=== PATIENT | female | born 1995 | race Caucasian/White ===

== ENCOUNTER 2016-11-19 23:03 | Outpatient (CLI) | payer BC, OTHER ==
[~2016-11-19 23:03] MED LIST: ALEVE220 M2; CIPRO500 MG PO; FLAGYL500 MG PO; FLEXERIL10 MG PO; IBUPROFEN800 MG PO; KEFLEX500 MG PO; MACROBID100 MG PO; METRONIDAZOLE500 MG PO; MOBIC15 MG PO; MOTRIN600 MG PO; NOHOMEMEDS; NORCO 5/3251 TABLET PO; PEPCID40 MG PO; PHENERGAN12.5 MG PR; PHENERGAN25 MG PR; PRENATAL TABLE1 EAC3 PO; PROMETHAZINE HC25 M1 PO; TYLENOL WITH C1 EACH PO; ZITHROMAX Z-PA250 MG PO; ZOFRAN ODT4 MG PO; ZOFRAN ODT8 MG PO; prenatals
[2016-11-19 23:36] VITALS: BP 112/55
[2016-11-20] MEDS ORDERED: PRENATAL TABLE1 EACH PO (00:18)
[2016-11-20] MEDS ORDERED: TYLENOL EXTRA500 MG PO (00:19)
== END 2016-11-20 00:30 | disposition home or self-care (01) ==
LOC: LDRP-OP 23:03 → 2WEST 23:04 → LDRP-OP 03-31 16:56
DX: O99.89 Other specified diseases and conditions complicating pregnancy, childbirth and the puerperium (principal); R10.2 Pelvic and perineal pain; M54.9 Dorsalgia, unspecified; R26.2 Difficulty in walking, not elsewhere classified; Z3A.25 25 weeks gestation of pregnancy
CPT/HCPCS: 59025; G0378

== ENCOUNTER 2017-01-16 02:08 | Outpatient (CLI) | payer BC, OTHER ==
[~2017-01-16 02:08] MED LIST changes: +PRENATAL TABLE1 EACH PO; +TYLENOL EXTRA500 MG PO
[2017-01-16 02:28] VITALS: BP 113/62
[2017-01-16 03:10] LABS: ADD MIUA? YES; BILIRUBIN NEGATIVE; BLOOD NEGATIVE; COLOR YELLOW ((YELLOW)); GLUCOSE (STRIP) NEGATIVE; KETONES NEGATIVE; LEUKOCYTES NEGATIVE; NITRITE NEGATIVE; PROTEIN (STRIP) NEGATIVE; SPECIFIC GRAVITY 1.013 (1.000-1.030); UROBILINOGEN 0.2 MG/DL (0.2-1.0)
[2017-01-16 03:15] LABS: BACTERIA RARE /HPF; CALCIUM OXALATE CRYSTALS 4+ /HPF; EPITHELIAL CELLS 1+ /HPF; MUCUS TRACE /LPF; UCUL ADDED? NO; WHITE BLOOD CELLS 0-5 /HPF (0-5)
== END 2017-01-16 03:20 | disposition home or self-care (01) ==
LOC: LDRP-OP → 2WEST 02:09
PROVIDERS: Advanced Practice Midwife
DX: O36.8130 Decreased fetal movements, third trimester, not applicable or unspecified (principal); Z3A.33 33 weeks gestation of pregnancy; M54.5 Low back pain; Z87.442 Personal history of urinary calculi
CPT/HCPCS: 59025; 81003; 87086; G0378

== ENCOUNTER 2017-02-08 19:49 | Outpatient (CLI) | payer BC, OTHER ==
[2017-02-08 20:25] VITALS: BP 124/73
[2017-02-08 20:57] LABS: ADD MIUA? YES; BILIRUBIN NEGATIVE; BLOOD SMALL; COLOR YELLOW ((YELLOW)); GLUCOSE (STRIP) NEGATIVE; KETONES NEGATIVE; LEUKOCYTES NEGATIVE; NITRITE NEGATIVE; PROTEIN (STRIP) NEGATIVE; SPECIFIC GRAVITY 1.013 (1.000-1.030); UROBILINOGEN 0.2 MG/DL (0.2-1.0)
[2017-02-08 21:03] LABS: BACTERIA NONE SEEN /HPF; CALCIUM OXALATE CRYSTALS 3+ /HPF; EPITHELIAL CELLS RARE /HPF; MUCUS NONE SEEN /LPF; UCUL ADDED? NO; WHITE BLOOD CELLS 0-5 /HPF (0-5)
== END 2017-02-08 21:00 | disposition home or self-care (01) ==
LOC: LDRP-OP → 2WEST 19:51 → LDRP-OP 03-31 03:26
PROVIDERS: Advanced Practice Midwife
DX: O26.893 Other specified pregnancy related conditions, third trimester (principal); R51 Headache; R42 Dizziness and giddiness; Z3A.37 37 weeks gestation of pregnancy
CPT/HCPCS: 59025; 81003; G0378

== ENCOUNTER 2017-02-14 22:14 | Outpatient (CLI) | payer BC, OTHER ==
[~2017-02-14] VITALS: Ht 165.1 cm; Wt 99.1 kg
[2017-02-14 22:31] VITALS: BP 147/83
[2017-02-14 22:34] VITALS: BP 141/71
[2017-02-14 22:47] VITALS: BP 141/74
[2017-02-14 22:52] VITALS: BP 135/71
== END 2017-02-15 01:00 | disposition home or self-care (01) ==
LOC: LDRP-OP 22:14 → 2WEST 22:18 → LDRP-OP 03-31 22:11
DX: O47.1 False labor at or after 37 completed weeks of gestation (principal); Z3A.37 37 weeks gestation of pregnancy
CPT/HCPCS: 59025; G0378

== ENCOUNTER 2017-02-23 07:29 | Inpatient (IN) | payer BC, OTHER ==
[~2017-02-23] VITALS: Ht 167.6 cm; Wt 99.1 kg
[2017-02-23] VITALS (34 sets, daily range): BP systolic 109–150; BP diastolic 57–98
[2017-02-23 10:02] LABS: BASOPHIL COUNT 0.1 K/uL (0-0.1); EOSINOPHIL (%) 1.2 % (0-5); EOSINOPHIL COUNT 0.1 K/uL (0-0.3); HEMATOCRIT 31.8 % (36.0-46.0); IMMATURE GRANULOCYTE (%) 0.7 % (0.0-0.7); IMMATURE GRANULOCYTE COUNT 0.1 K/uL; INSTRUMENT ABS NEUTROPHIL CT 6.7 K/uL; LYMPHOCYTE COUNT 2.6 K/uL (1.0-2.8); MCH 26.5 PG (29.0-34.0); MCHC 32.4 G/DL (30.0-36.0); MCV 81.7 FL (83-99); MEAN PLAT.VOLUME 11.7 uM^3 (9.5-12.4); MONOCYTE (%) 6.8 % (3-12); MONOCYTE COUNT 0.7 K/uL (0-0.8); NEUTROPHIL (%) 65.1 % (45-76); NEUTROPHIL COUNT 6.7 K/uL (1.8-6.4); PLATELET COUNT 283 K/uL (156-360); RBC DIS.WIDTH-CV 14.1 % (11.8-14.6); RBC DIS.WIDTH-SD 40.9 % (39-53); RED BLOOD COUNT 3.89 M/uL (3.80-5.20); WHITE BLOOD COUNT 10.3 K/uL (4.1-10.2)
[2017-02-24] VITALS (12 sets, daily range): BP systolic 116–155; BP diastolic 59–81
[2017-02-25 07:38] LABS: BASOPHIL COUNT 0.1 K/uL (0-0.1); EOSINOPHIL (%) 2.8 % (0-5); EOSINOPHIL COUNT 0.3 K/uL (0-0.3); HEMATOCRIT 29.3 % (36.0-46.0); IMMATURE GRANULOCYTE (%) 0.7 % (0.0-0.7); IMMATURE GRANULOCYTE COUNT 0.1 K/uL; INSTRUMENT ABS NEUTROPHIL CT 6.8 K/uL; LYMPHOCYTE COUNT 3.7 K/uL (1.0-2.8); MCH 26.9 PG (29.0-34.0); MCHC 32.1 G/DL (30.0-36.0); MEAN PLAT.VOLUME 11.8 uM^3 (9.5-12.4); MONOCYTE (%) 7.5 % (3-12); MONOCYTE COUNT 0.9 K/uL (0-0.8); NEUTROPHIL (%) 57.3 % (45-76); NEUTROPHIL COUNT 6.8 K/uL (1.8-6.4); PLATELET COUNT 212 K/uL (156-360); RBC DIS.WIDTH-CV 14.4 % (11.8-14.6); RBC DIS.WIDTH-SD 43.8 % (39-53); RED BLOOD COUNT 3.49 M/uL (3.80-5.20); WHITE BLOOD COUNT 11.8 K/uL (4.1-10.2)
[2017-02-25] MEDS ORDERED: DOCUSATE SODIU100 MG PO (09:19)
[2017-02-25] MEDS ORDERED: IBUPROFEN800 MG PO (09:19)
[2017-02-25] MEDS ORDERED: FERROCITE324 MG PO (09:20)
== END 2017-02-25 15:30 | disposition home or self-care (01) | DRG 775 ==
LOC: LDRP-OP 07:29 → 2WEST 07:30 → LDRP-OP 07:35 → 2WEST 02-24 02:15 → LDRP-OP 03-19 01:48
PROVIDERS: Advanced Practice Midwife
PROC: 10907ZC Drainage of Amniotic Fluid, Therapeutic from Products of Conception, Via Natural or Artificial Opening (ICD-10-PCS; 2017-02-23)
PROC: 3E0R3CZ (ICD-10-PCS; 2017-02-23)
PROC: 00HU33Z Insertion of Infusion Device into Spinal Canal, Percutaneous Approach (ICD-10-PCS; 2017-02-23)
PROC: 3E0P7GC Introduction of Other Therapeutic Substance into Female Reproductive, Via Natural or Artificial Opening (ICD-10-PCS; 2017-02-23)
PROC: 10E0XZZ Delivery of Products of Conception, External Approach (ICD-10-PCS; principal; 2017-02-24)
DX: O70.0 First degree perineal laceration during delivery (principal); O69.81X0 Labor and delivery complicated by cord around neck, without compression, not applicable or unspecified; O99.824 Streptococcus B carrier state complicating childbirth; O99.02 Anemia complicating childbirth; D62 Acute posthemorrhagic anemia; O99.344 Other mental disorders complicating childbirth; F41.9 Anxiety disorder, unspecified; F32.9 Major depressive disorder, single episode, unspecified; Z3A.39 39 weeks gestation of pregnancy; Z37.0 Single live birth
CPT/HCPCS: 85025; C1755; G0378; J2540; J3010; J7120

== ENCOUNTER 2017-04-11 20:48 | Emergency (ER) | payer BC, OTHER ==
[~2017-04-11] VITALS: Ht 167.6 cm; Wt 93.2 kg
[~2017-04-11 20:48] MED LIST changes: +DOCUSATE SODIU100 MG PO; +FERROCITE324 MG PO
[2017-04-11 21:54] LABS: HEMATOCRIT 40.6 % (36.0-46.0); MCHC 30.8 G/DL (30.0-36.0); MEAN PLAT.VOLUME 10.2 uM^3 (9.5-12.4); PLATELET COUNT 339 K/uL (156-360); RBC DIS.WIDTH-CV 14.3 % (11.8-14.6); RBC DIS.WIDTH-SD 42.1 % (39-53); RED BLOOD COUNT 5.01 M/uL (3.80-5.20); WHITE BLOOD COUNT 11.6 K/uL (4.1-10.2)
[2017-04-11 22:06] LABS: CHLORIDE 106 mEq/L (99-109); POTASSIUM 4.2 mEq/L (3.7-5.4); SODIUM 139 mEq/L (136-147)
[2017-04-11 22:08] LABS: GLUCOSE 92 mg/dL (70-99)
[2017-04-11 22:09] LABS: ANION GAP 8 MEQ/L (2-14)
[2017-04-11 22:10] LABS: TOTAL BILIRUBIN 0.4 mg/dL (0.0-1.0)
[2017-04-11 22:12] LABS: ALKALINE PHOSPHATASE 105 IU/L (3-129); GFR ESTIMATE (CALCULATED) > 59 mL/min/
[2017-04-11 22:13] LABS: UREA NITROGEN (BUN) 22 mg/dL (9-23)
[2017-04-11 22:23] LABS: QUANTITATIVE HCG < 4.0 MIU/ML
[2017-04-12 01:41] LABS: ADD MIUA? YES; BILIRUBIN NEGATIVE; BLOOD MODERATE; COLOR YELLOW ((YELLOW)); GLUCOSE (STRIP) NEGATIVE; KETONES NEGATIVE; LEUKOCYTES NEGATIVE; NITRITE NEGATIVE; PROTEIN (STRIP) NEGATIVE; SPECIFIC GRAVITY 1.018 (1.000-1.030); UROBILINOGEN 0.2 MG/DL (0.2-1.0)
[2017-04-12 01:48] LABS: BACTERIA NONE SEEN /HPF; EPITHELIAL CELLS RARE /HPF; MUCUS TRACE /LPF; RED BLOOD CELLS TNTC /HPF (0-5); UCUL ADDED? NO; WHITE BLOOD CELLS 0-5 /HPF (0-5)
[2017-04-12] MEDS ORDERED: NAPROXEN500 MG PO (01:50)
[2017-04-12 01:59] VITALS: BP 127/63
== END 2017-04-12 02:00 | disposition home or self-care (01) ==
LOC: EME 20:48 → RME 20:48
DX: R10.31 Right lower quadrant pain (principal); Z87.442 Personal history of urinary calculi
CPT/HCPCS: 74176; 74177; 80053; 81003; 84702; 85027; 99281; 99284; J1885

== ENCOUNTER 2017-08-04 18:43 | Inpatient (IN) | payer BC ==
[~2017-08-04] VITALS: Ht 167.6 cm; Wt 92.1 kg
[~2017-08-04 18:43] MED LIST changes: +NAPROXEN500 MG PO
[2017-08-04 19:07] LABS: MCH 26.2 PG (29.0-34.0); MCHC 31.8 G/DL (30.0-36.0); MCV 82.5 FL (83-99); MEAN PLAT.VOLUME 9.7 uM^3 (9.5-12.4); RBC DIS.WIDTH-CV 13.6 % (11.8-14.6); RBC DIS.WIDTH-SD 41.3 % (39-53); RED BLOOD COUNT 4.12 M/uL (3.80-5.20); WHITE BLOOD COUNT 16.3 K/uL (4.1-10.2)
[2017-08-04 19:10] LABS: PLATELET COUNT 502 K/uL (156-360)
[2017-08-04 19:19] LABS: CHLORIDE 106 mEq/L (99-109); SODIUM 138 mEq/L (136-147)
[2017-08-04 19:21] LABS: GLUCOSE 88 mg/dL (70-99)
[2017-08-04 19:22] LABS: ANION GAP 8 MEQ/L (2-14)
[2017-08-04 19:25] LABS: GFR ESTIMATE (CALCULATED) > 59 mL/min/
[2017-08-04 19:26] LABS: UREA NITROGEN (BUN) 14 mg/dL (9-23)
[2017-08-04 22:58] LABS: TOTAL BILIRUBIN 0.5 mg/dL (0.0-1.0)
[2017-08-04 22:59] LABS: ALKALINE PHOSPHATASE 100 IU/L (3-129)
[2017-08-04 23:02] LABS: DIRECT BILIRUBIN 0.2 mg/dL (0.0-0.3)
[2017-08-04 23:03] LABS: LIPASE 15 U/L (1.0-51.0)
[2017-08-04] MEDS ORDERED: DILAUDID2 MG PO (23:23)
[2017-08-05 06:46] LABS: BASOPHIL COUNT 0.1 K/uL (0-0.1); EOSINOPHIL (%) 1.8 % (0-5); EOSINOPHIL COUNT 0.3 K/uL (0-0.3); HEMATOCRIT 27.5 % (36.0-46.0); IMMATURE GRANULOCYTE (%) 0.6 % (0.0-0.7); IMMATURE GRANULOCYTE COUNT 0.1 K/uL; INSTRUMENT ABS NEUTROPHIL CT 7.8 K/uL; LYMPHOCYTE COUNT 4.2 K/uL (1.0-2.8); MCH 25.9 PG (29.0-34.0); MCHC 30.9 G/DL (30.0-36.0); MCV 83.8 FL (83-99); MEAN PLAT.VOLUME 9.5 uM^3 (9.5-12.4); MONOCYTE (%) 8.8 % (3-12); MONOCYTE COUNT 1.2 K/uL (0-0.8); NEUTROPHIL (%) 57.4 % (45-76); NEUTROPHIL COUNT 7.8 K/uL (1.8-6.4); PLATELET COUNT 373 K/uL (156-360); RBC DIS.WIDTH-CV 13.6 % (11.8-14.6); RBC DIS.WIDTH-SD 42.1 % (39-53); RED BLOOD COUNT 3.28 M/uL (3.80-5.20); WHITE BLOOD COUNT 13.6 K/uL (4.1-10.2)
[2017-08-05 12:25] VITALS: BP 125/70
[2017-08-05 15:46] VITALS: BP 120/58
[2017-08-05 19:49] VITALS: BP 125/64
[2017-08-06] VITALS (7 sets, daily range): BP systolic 114–141; BP diastolic 56–72
[2017-08-06 06:41] LABS: HEMATOCRIT 29.1 % (36.0-46.0); MCH 25.8 PG (29.0-34.0); MCHC 31.3 G/DL (30.0-36.0); MCV 82.4 FL (83-99); MEAN PLAT.VOLUME 9.9 uM^3 (9.5-12.4); PLATELET COUNT 390 K/uL (156-360); RBC DIS.WIDTH-CV 13.5 % (11.8-14.6); RBC DIS.WIDTH-SD 40.8 % (39-53); RED BLOOD COUNT 3.53 M/uL (3.80-5.20); WHITE BLOOD COUNT 9.4 K/uL (4.1-10.2)
[2017-08-06 07:07] LABS: ANION GAP 7 MEQ/L (2-14); CHLORIDE 110 MEQ/L (99-109); GFR ESTIMATE (CALCULATED) > 59 mL/min/; POTASSIUM 4.3 MEQ/L (3.7-5.4); SAMPLE HEMOLYSIS CHECK 0; SAMPLE ICTERIC CHECK 0; SAMPLE LIPEMIA CHECK 0; SODIUM 143 MEQ/L (136-147); UREA NITROGEN (BUN) 10 mg/dL (9-23)
[2017-08-06 07:09] LABS: GLUCOSE 117 mg/dL (70-99)
[2017-08-07 03:40] VITALS: BP 124/61
[2017-08-07 08:34] VITALS: BP 130/55
[2017-08-07] MEDS ORDERED: BACTRIM,SEPT1 TABLET PO (13:22)
== END 2017-08-07 14:33 | disposition home or self-care (01) | DRG 862 ==
LOC: EME 18:43 → EDOF 08-05 02:17 → 2EASTP 08-05 02:17 → ENRESERV 08-05 02:18 → 2EASTP 08-05 12:13
PROVIDERS: Hospitalist; Physician Assistant
DX: T81.4XXA Infection following a procedure, initial encounter (principal); Y83.8 Other surgical procedures as the cause of abnormal reaction of the patient, or of later complication, without mention of misadventure at the time of the procedure; B95.2 Enterococcus as the cause of diseases classified elsewhere; N61.1 Abscess of the breast and nipple; A41.9 Sepsis, unspecified organism; D64.9 Anemia, unspecified
CPT/HCPCS: 71020; 76641; 80048; 80076; 80202; 83605; 83690; 85025; 85027; 87040; 87070; 87075; 87076; 87077; 87185; 87186; 87205; 99281; 99285; J1650; J1885; J2270; J2405; J2543; J3370; J7030; J7050